=== PATIENT | female | born 1980 | race Caucasian/White ===

== ENCOUNTER 2017-08-13 11:12 | Emergency (ER) | payer MEDICAID ==
[2017-08-13 11:23] VITALS: BP 130/85
--- NOTE | 2017-08-13 11:23 | ER Document Report ---
ED Hand/Wrist Injury - General Chief Complaint: Hand Pain Stated Complaint: HAND PAIN Time Seen by Provider: 08/13/17 11:22 Mode of Arrival: Ambulatory Information source: Patient Notes: Patient is a 36-year-old female who presents to the ER today for 1 week of bilateral hand pain. Patient states that it feels like it starts in the hand and shoots up to the forearm. She admits to numbness and tingling. She states it is worse when she first wakes up in the morning. She denies any injury, history of joint illnesses such as lupus or rheumatoid arthritis, etc. TRAVEL OUTSIDE OF THE [place] IN LAST 30 DAYS: No - Related Data Allergies/Adverse Reactions: lamotrigine [From Lamictal] Allergy (Verified 08/13/17 11:13) oxcarbazepine [From Trileptal] Allergy (Verified 08/13/17 11:13) shellfish derived Allergy (Verified 08/13/17 11:13) Past Medical History - General Information source: Patient - Social History Smoking Status: Unknown if Ever Smoked Family History: Reviewed & Not Pertinent Review of Systems - Review of Systems Constitutional: No symptoms reported EENT: No symptoms reported Cardiovascular: No symptoms reported Respiratory: No symptoms reported Gastrointestinal: No symptoms reported Genitourinary: No symptoms reported Female Genitourinary: No symptoms reported Musculoskeletal: See HPI Skin: See HPI Hematologic/Lymphatic: No symptoms reported Neurological/Psychological: No symptoms reported Physical Exam - Vital signs Vitals: Temp Pulse Resp BP Pulse Ox 97.9 F 113 H 18 130/85 H 97 08/13/17 11:22 08/13/17 11:22 08/13/17 11:22 08/13/17 11:22 08/13/17 11:22 - Notes Notes: PHYSICAL EXAMINATION: GENERAL: Well-appearing and in no acute distress. HEAD: Atraumatic, normocephalic. EYES: Pupils equal round and reactive to light, extraocular movements intact, sclera anicteric, conjunctiva are normal. NECK: Normal range of motion, supple without lymphadenopathy LUNGS: CTAB and equal. No wheezes rales or rhonchi. HEART: Regular rate and rhythm without murmurs EXTREMITIES: Tinel's and Phalen's sign positive for carpal tunnel, pain elicited , numbness with testing, Normal range of motion, no pitting edema. No cyanosis. NEUROLOGICAL: Cranial nerves grossly intact. Normal sensory/motor exams. PSYCH: Normal mood, normal affect. SKIN: Warm, Dry, normal turgor, no rashes or lesions noted Course - Re-evaluation Re-evalutation: 08/13/17 16:34 Patient was given to wrist braces here to wear at night for carpal tunnel. She was advised to follow-up with her primary care provider. - Vital Signs Vital signs: Temp Pulse Resp BP Pulse Ox 97.9 F 113 H 18 130/85 H 97 08/13/17 11:22 08/13/17 11:22 08/13/17 11:22 08/13/17 11:22 08/13/17 11:22 Discharge - Discharge Clinical Impression: Bilateral carpal tunnel syndrome Condition: Stable Disposition: HOME, SELF-CARE Additional Instructions: Return immediately for any new or worsening symptoms. Follow up with primary care provider, call tomorrow to make followup appointment. Wear your braces at night every night. Continue taking ibuprofen for the inflammation. Prescriptions: Ibuprofen 800 mg PO TID #30 tablet Forms: Return to Work
[2017-08-13] MEDS ORDERED: HYDROCODONE/ACETAMINOPHEN 5-325 MG 6 TAB/DSPK PO PRN (12:17)
== END 2017-08-13 12:39 | disposition home or self-care (01) ==
LOC: ER 11:12
DX: G56.03 Carpal tunnel syndrome, bilateral upper limbs (principal); M79.641 Pain in right hand; M79.642 Pain in left hand; M79.632 Pain in left forearm; M79.631 Pain in right forearm; R20.0 Anesthesia of skin
CPT/HCPCS: 99283; L3908 ×2